=== PATIENT | male | born 1975 | race Caucasian/White ===

== ENCOUNTER 2021-03-13 19:44 | Emergency (ER) | payer OTHER ==
[~2021-03-13] VITALS: Ht 175.3 cm; Wt 78.9 kg
[2021-03-13] MEDS ORDERED: ZITHROMAX500 MG PO (22:23)
[2021-03-13] MEDS ORDERED: TUSNEL LIQUID178 ML PO (22:23)
== END 2021-03-13 22:51 | disposition home or self-care (01) ==
LOC: ER 19:44
DX: R55 Syncope and collapse (principal); R51.9 Headache, unspecified